=== PATIENT | female | born 1990 | race Caucasian/White ===

== ENCOUNTER 2020-12-25 23:54 | Emergency (ER) | payer MEDICAID, SELFPAY ==
--- NOTE | ~2020-12-25 | XR_ITS ---
EXAMINATION: XR ANKLE, LEFT CLINICAL INFORMATION: Status post fall COMPARISON: None TECHNIQUE: AP, lateral, and mortise views of the left ankle. FINDINGS: No acute fracture or dislocation. Ankle mortise is congruent. Talar dome intact. Soft tissue swelling present lateral to the ankle. No ankle joint effusion. XR/XR ankle LT min 3V IMPRESSION: No acute fracture or dislocation. Soft tissue swelling lateral to the ankle.
[2020-12-25 23:57] VITALS: BP 127/79; PULSE 84; RESP 16; TEMP 36.9; O2SAT 100; BMI 28.0
[2020-12-26 00:04] VITALS: BP 122/81; PULSE 80; RESP 16; TEMP 37; O2SAT 100
--- NOTE | 2020-12-26 00:11 | ED.LOWEXIN ---
HPI - Extremity Injury (Lower) General Chief Complaint: Extremity Injury, Lower Stated Complaint: left ankle pain Time Seen by Provider: 12/26/20 00:09 Source: patient Mode of arrival: ambulatory Limitations: no limitations History of Present Illness HPI Narrative: Patient was [place] [employer] [place] this afternoon landed wrong betzy left foot landed with food turned inward since then complaining of pain and swelling. No other injuries MD complaint: ankle injury Related Data Previous Rx's Medication Instructions Recorded ibuprofen 600 mg PO Q6H PRN #20 tab 12/26/20 Allergies Allergy/AdvReac Type Severity Reaction Status Date / Time No Known Allergies Allergy Verified 12/26/20 00:13 Review of Systems Review of Systems: Yes all other systems are reviewed and are negative [facility] Social History Social History Alcohol intake: current Alcohol intake frequency: holidays/special occasions only Smoking Status: Never smoker Use of substances other than those prescribed or required for medical reasons: Yes Substance Use Type: Marijuana Substance Use Frequency: Occasionally Advance Directives: No Advance Directives Information Provided: No Physical Exam Vital Signs: Vital Signs: Last Vital Signs Temp 98.6 F 12/26/20 00:04 Pulse 80 12/26/20 00:04 Resp 16 12/26/20 00:04 BP 122/81 12/26/20 00:04 Pulse Ox 100 12/26/20 00:04 Body Mass Index 28.0 Const: General: no acute distress Orientation/consciousness: patient oriented x3 Back/Spine/Pelvis: Thoracic/Lumbar Spine: thoracic and lumbar spine normal to inspection Neuro: General: patient oriented x3 Extrem: Ankle/foot/toe images: 1. Diffuse swelling of lateral malleolus no obvious deformity neurovascular intact Procedures Orthopedic Splinting/Casting Injury #1: Side: left Lower Extremity Injury Location: ankle Lower Extremity Immobilizer: AirCast Other Orthopedic Equipment: crutches MDM - Extremity Injury (Lower) MDM Narrative Medical decision making narrative: X negative fracture will apply air cast and give crutches Differential Diagnosis Differential diagnosis: Likely ankle sprain and strain Discharge Plan Discharge Clinical Impression: Ankle sprain and strain Patient Disposition: Home, Self-Care Instructions: Ankle Sprain (ED) Additional Instructions: Rest to left ankle wear ankle Aircast. Crutches for support Ibuprofen for pain Prescriptions: New ibuprofen 600 mg tablet 600 mg PO Q6H PRN (Reason: pain) Qty: 20 RF: 0
--- NOTE | 2020-12-26 00:17 | PC.NURSE ---
pt presents to ED with left ankle injury after going to [employer] this afternoon and landing on her left foot wrong. pt states she heard a pop when she landed and landed with her left foot rotated inward. pt states she was somewhat weight bearing right after the incident but is no longer weight bearing. current pain is 8/10 on left ankle. pt is alert and oriented x3, eye contact and verbal response appropriate for setting. pt speaks in full sentences and is able to make needs known. respirations are even and unlabored. pt denies feeling short of breath at this time. heart rate within normal limits. swelling present on left lateral malleolus, pt has limited range of motion in left foot/ankle--minimal flexion and extension, unable to rotate left foot at all. pedal pulses present bilaterally but diminished in left foot. no discoloration noted on left foot or ankle. fresh ice pack given to patient for left ankle. x ray ordered. md at bedside. pt aware of plan of care, no questions or concerns at this time. call chacko in reach.
[2020-12-26] MEDS: traMADoL HCL 50 MG TABLET PO (00:38)
== END 2020-12-26 01:08 | disposition home or self-care (01) ==
PROVIDERS: Emergency Provider Internal Medicine
DX: S93.402A Sprain of unspecified ligament of left ankle, initial encounter (principal); S96.912A Strain of unspecified muscle and tendon at ankle and foot level, left foot, initial encounter; X50.1XXA Overexertion from prolonged static or awkward postures, initial encounter; Y93.44 Activity, trampolining; Y92.39 Other specified sports and athletic area as the place of occurrence of the external cause; Y99.9 Unspecified external cause status
CPT/HCPCS: 73610; 99283; 99284

== ENCOUNTER 2024-08-20 21:15 | Emergency (ER) | payer OTHER, SELFPAY ==
--- NOTE | ~2024-08-20 | XR_ITS ---
EXAMINATION: XR CHEST CLINICAL INFORMATION: Chest pain COMPARISON: None TECHNIQUE: 2 views of the chest were obtained. FINDINGS: No significant abnormality is noted involving the heart, lungs, mediastinum, bony thorax or soft tissues. XR/XR chest 2V IMPRESSION: Unremarkable examination. Electronically signed by: Jacob Warren MD 08/21/2024 12:50 AM [facility]
--- NOTE | 2024-08-20 21:18 | ECG_ITS ---
Test Reason : CHEST PAIN Blood Pressure : / mmHG Vent. Rate : 075 BPM Atrial Rate : 075 BPM P-R Int : 130 ms QRS Dur : 092 ms QT Int : 392 ms P-R-T Axes : 016 088 042 degrees QTc Int : 437 ms Normal sinus rhythm Normal ECG No previous ECGs available Referred By: Generic ED Physician Electronically Signed By:Gareth Sloan
[2024-08-20 21:20] VITALS: BP 125/84; PULSE 81; RESP 16; TEMP 37.3; O2SAT 100; BMI 26.6
[2024-08-20 21:44] LABS: MANUAL DIFF FLAG NO
[2024-08-20 21:47] LABS: Basophils Percent Auto 0.5 % (0-2); Eosinophils Absolute Auto 0.3 X10*3/uL (0.0-0.4); Hematocrit 38.3 % (37.0-47.0); Hemoglobin 13.4 g/dl (12.0-16.0); Imm Gran Abs Auto 0.02 X10*3/uL (0.00-0.03); Imm Gran Pct Auto 0.2 % (0.0-0.4); Lymphocytes Absolute Auto 2.8 X10*3/uL (1.2-4.9); Lymphocytes Percent Auto 31.7 % (20-40); Mean Corpuscular Hemoglobin 30.4 pg (27.0-33.0); Mean Corpuscular Volume 86.8 fL (80.0-98.0); Mean Platelet Volume 9.7 fL (9.4-12.3); Monocytes Absolute Auto 0.7 X10*3/uL (0.1-1.2); Monocytes Percent Auto 7.6 % (2-11); Platelet Count 315 X10*3/uL (160-400); Red Blood Count 4.41 X10*6/uL (4.20-5.50); Red Cell Distribution Width 11.7 % (11.0-16.0); White Blood Count 8.7 X10*3/uL (4.8-10.8)
[2024-08-20 22:06] LABS: Alanine Aminotransferase 19 U/L (0-31); Alkaline Phosphatase 60 U/L (39-117); Anion Gap 12 (12-20); Aspartate Amino Transferase 21 U/L (5-31); Bilirubin Total 0.2 mg/dL (0.0-1.0); Blood Urea Nitrogen 10 mg/dL (9-16); Carbon Dioxide 24 mmol/L (22-29); Chloride 107 mmol/L (96-108); Creatinine Clr Calc Pharmacy 90.1; Estimated Glomerular Filt Rate > 60; Glucose Random 108 mg/dL (60-115); Potassium 3.8 mmol/L (3.3-5.1); Sodium 139 mmol/L (135-145); Total Protein 6.9 g/dL (6.5-8.0)
[2024-08-20 22:13] LABS: Troponin-I High Sensitivity < 2.7 ng/L (<3.5-17.0)
[2024-08-21 00:16] VITALS: BP 115/60; PULSE 69; RESP 16; TEMP 37; O2SAT 96
--- NOTE | 2024-08-21 00:36 | ED.CHESTPAIN ---
HPI - Chest Pain General Chief Complaint: Chest Pain Stated Complaint: Chest pain Time Seen by Provider: 08/21/24 00:11 Related Data Previous Rx's ?Medication ?Instructions ?Recorded ibuprofen 600 mg tablet 600 mg PO Q6H PRN pain #20 tabs 12/26/20 Allergies Allergy/AdvReac Type Severity Reaction Status Date / Time sulfamethoxazole Allergy Hives Verified 08/20/24 21:23 [From Bactrim] trimethoprim [From Bactrim] Allergy Hives Verified 08/20/24 21:23 [facility] Social History Social History Alcohol intake: current Alcohol intake frequency: holidays/special occasions only Substance Use Type: Marijuana Advance Directives: No Do you have a plan to hurt others: No Plan Physical Exam Vital Signs: Vital Signs: Last Vital Signs Temp 98.6 F 08/21/24 00:16 Pulse 69 08/21/24 00:16 Resp 16 08/21/24 00:16 BP 115/60 08/21/24 00:16 Pulse Ox 96 08/21/24 00:16 O2 Del Method Room Air 08/21/24 00:16 BMI result Body Mass Index 26.6 Medical Decision Making Lab Data 08/20/24 21:39 08/20/24 21:39 Labs: Lab Results 08/20/24 Range/Units 21:39 WBC 8.7 (4.8-10.8) X10*3/uL RBC 4.41 (4.20-5.50) X10*6/uL Hgb 13.4 (12.0-16.0) g/dl Hct 38.3 (37.0-47.0) % MCV 86.8 (80.0-98.0) fL MCH 30.4 (27.0-33.0) pg MCHC 35.0 (31.0-35.0) g/dl RDW 11.7 (11.0-16.0) % Plt Count 315 (160-400) X10*3/uL MPV 9.7 (9.4-12.3) fL Immature Gran % (Auto) 0.2 (0.0-0.4) % Neut % (Auto) 57.0 (45-73) % Lymph % (Auto) 31.7 (20-40) % [place] % (Auto) 7.6 (2-11) % Eos % (Auto) 3.0 (0-4) % Baso % (Auto) 0.5 (0-2) % Lymph # (Auto) 2.8 (1.2-4.9) X10*3/uL [place] # (Auto) 0.7 (0.1-1.2) X10*3/uL Eos # (Auto) 0.3 (0.0-0.4) X10*3/uL Baso # (Auto) 0.0 (0.0-0.2) X10*3/uL Abs Immat Gran (auto) 0.02 (0.00-0.03) X10*3/uL Absolute Neuts (auto) 5.0 (2.0-8.3) x10*3/uL Absolute Nucleated RBC 0.000 (0.0-0.012) X10*3/uL Nucleated RBC % (auto) 0.0 (0.0-0.2) /100WBC Sodium 139 (135-145) mmol/L Potassium 3.8 (3.3-5.1) mmol/L Chloride 107 (96-108) mmol/L Carbon Dioxide 24 (22-29) mmol/L Anion Gap 12 (12-20) BUN 10 (9-16) mg/dL Creatinine 0.83 (0.5-1.4) mg/dL Estim Creat Clear Calc 90.1 Estimated GFR > 60 Random Glucose 108 (60-115) mg/dL Calcium 9.0 (8.4-10.2) mg/dL Total Bilirubin 0.2 (0.0-1.0) mg/dL AST 21 (5-31) U/L ALT 19 (0-31) U/L Alkaline Phosphatase 60 (39-117) U/L Troponin I High Sens < 2.7 (<3.5-17.0) ng/L Total Protein 6.9 (6.5-8.0) g/dL Albumin 4.0 (3.5-5.0) g/dL Discharge Plan Discharge Clinical Impression: Chest pain Patient Disposition: Home, Self-Care Instructions: Chest Pain (ED) Additional Instructions: Your workup in the ER today was reassuring. This includes your blood work, EKG, chest x-ray. You may use ibuprofen/Tylenol as needed for pain. You may follow-up with cardiology at the number provided Return for new or worsening symptoms Prescriptions: No Action ibuprofen 600 mg tablet 600 mg PO Q6H PRN (Reason: pain) Qty: 20 0RF Referrals: Gareth Sloan MD [Physician] - (chest pain) Print Language: Malawian
[2024-08-21 00:47] VITALS: BP 122/69; PULSE 70; RESP 16; TEMP 36.8; O2SAT 99
== END 2024-08-21 00:48 | disposition home or self-care (01) ==
PROVIDERS: Emergency Provider Internal Medicine; PCP Nurse Practitioner Family
DX: R07.89 Other chest pain (principal); Z79.899 Other long term (current) drug therapy
CPT/HCPCS: 36415; 71046; 80053; 84484; 85025; 93005; 99283; 99285

== ENCOUNTER → 2024-08-20 21:18 | Outpatient (BNV) | payer MEDICAID, SELFPAY | PROVIDERS: Emergency Provider Internal Medicine; PCP Nurse Practitioner Family; Visit Provider Internal Medicine Cardiovascular Disease | DX: R07.9 Chest pain, unspecified (principal) | CPT/HCPCS: 93010 ==

== ENCOUNTER 2024-09-20 13:33 | Outpatient (AMB) | payer OTHER, SELFPAY ==
--- NOTE | 2024-09-20 13:35 | A.OFFVIS_ITS ---
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 She has been referred to us by her primary care physician for evaluation of ongoing chest pain. The patient was recently seen in the emergency room for this issue, where her EKG and troponin levels were within normal limits, and was discharged with NSAIDs. Since then, her chest pain has become more frequent. She describes it as a constant 5/10 left-sided chest tightness and pressure sometimes associated with sharp pain in the same location pain is vague in nature, worsens over time, and can be exertional as well as nonexertional. The patient also reports infrequent palpitations during these episodes and notes that at times she wakes up at night gasping for air, accompanied by chest pain. Additionally she mentions that about 5 months ago, she lost her spouse suddenly. Initially believing her symptoms were emotionally related, but as her symptoms progressively worsened she believes this could be broken heart syndrome . She further notes that her spouse had undiagnosed cardiac issues on autopsy which were not discovered during the ER visits for his chest pain, and this has made her particularly attentive to her own cardiac health. [facility] Medical History Palpitation Atypical chest pain Social History Alcohol intake: current Alcohol intake frequency: does not drink Patient Tobacco Use Status: Never used Tobacco Review of Systems Const Denies weakness ENT Reports dizziness Card Reports chest pain, Denies chest pain with activity, Denies syncope, Denies rapid heart rate, Denies pedal edema, Denies edema, Denies leg edema, Denies lightheadedness, Reports palpitations, Reports dyspnea, Denies dyspnea on exertion and Denies orthopnea Resp Denies cough, Reports dyspnea and Denies dyspnea on exertion GI Denies hematochezia and Denies change in stool character Musc Denies abnormal gait, Denies muscle cramps, Denies muscle weakness, Denies numbness, Denies radiating pain into limb and Denies tingling Neuro Denies abnormal gait, Reports dizziness, Denies syncope, Denies numbness, Denies tingling and Denies weakness Endo Reports palpitations Physical Exam Vital Signs: Last Vital Signs Pulse 65 09/20/24 13:36 BP 106/60 09/20/24 13:36 BMI result Body Mass Index 26.9 Const General: cooperative, healthy appearing, comfortable and no acute distress Orientation/consciousness: patient oriented x3 HEENT Head: Yes normal to inspection Neck Neck: Yes normal visual inspection, Yes trachea midline and Yes supple Chest Chest palpation & inspection: normal inspection of the chest Resp Effort & Inspection: normal respiratory effort Auscultation: clear to auscultation bilaterally, no crackles, no rales, no rhonchi and no wheezes Cardio Jugular venous distension: no JVD Palpation: normal PMI Rate: regular rate Rhythm: regular rhythm Heart sounds: S1 normal heart sound present, S2 normal heart sound present, no click, no gallops, no murmurs and no rubs Peripheral pulses: Peripheral pulses 2+ throughout GI Inspection: Yes normal to inspection Palpation (GI): Soft to palpation Auscultation: normal bowel sounds Skin General skin exam: no rashes or lesions noted Neuro General: patient oriented x3 Extrem General: Yes normal to inspection, No no pedal edema and No calf tenderness Psych Appearance: grossly normal Mental Status: mental status grossly normal Speech and movement: Normal speech and movement present Office Procedures EKG Details: EKG today shows underlying normal sinus rhythm at 65 beats per minute, [place], [place]. [id number], Complete Assessment & Plan Assessment & Plan (1) Atypical chest pain: Code(s): R07.89 - Other chest pain Category: Medical (2) Palpitation: Code(s): R00.2 - Palpitations Category: Medical Plan Patient's description of chest pain is atypical, and it may be musculoskeletal or anxiety related. However, to rule out any underlying ischemic heart disease, we will proceed with an exercise stress test. Additionally, given the patient's reports of fluttering and skipped heartbeats, we will get a Holter monitor to assess for potential arrhythmias. Patient has expressed a strong desire for echocardiogram to ensure comprehensive evaluation, and we will accommodate this request. The echocardiogram is ordered to assess for any structural abnormalities or wall motion issues. Patient will follow-up after completion of tests. In the interim, advised patient to continue NSAIDs as needed for the pain management. Recommended seeking ER care or calling the office for increased chest pain with exertion, shortness of breath, presyncope or syncope. This note was generated using voice recognition software. While every effort has been made to ensure accuracy and proper bar steward, there may be occasional errors that could affect the content or meaning of the described symptoms. Orders: Orders ECG 3 day holter monitor Today R00.2 - Palpitations CA stress test Today R07.89 - Other chest pain CA echo transthoracic complete Today R00.2 - Palpitations, R07.89 - Other chest pain AMB EKG-In Office Today R07.89 - Other chest pain Medications: Discontinued ibuprofen Discontinued Reason: Patient no longer taking 600 mg PO Q6H PRN 20 tabs 0RF pain Coding Level of Care Code New Pt Level 4 (96894) Diagnoses Atypical chest pain R07.89 Palpitation R00.2 CPT Codes EKG - CPT: 87053-[id number], Complete ([id number]) Time Spent (min) 31 Comment Time spent in reviewing the chart, test results, assessment, counseling and documentation.
[2024-09-20 13:36] VITALS: BP 106/60; PULSE 65; BMI 26.9
== END 2024-09-20 14:26 | disposition home or self-care (01) ==
PROVIDERS: PCP Nurse Practitioner Family
DX: R07.89 Other chest pain (principal); R00.2 Palpitations
CPT/HCPCS: 93010; 99204

== ENCOUNTER → 2024-09-20 13:33 | Outpatient (BNVA) | payer OTHER, SELFPAY | PROVIDERS: PCP Nurse Practitioner Family | DX: R07.89 Other chest pain (principal); R00.2 Palpitations | CPT/HCPCS: 93005 ==

== ENCOUNTER → 2024-10-07 08:05 | Outpatient (REF) | payer OTHER, SELFPAY ==
--- NOTE | 2024-10-07 08:10 | CA_ITS ---
Transthoracic Echocardiogram Patient (Last, First, Middle): Destinee Hampton, Gender: Female Date of : 1990 Age: 34 Procedure Date: 10/07/2024 Procedure Type: Transthoracic Echocardiogram Location: OP Height: 160.02 cm Weight: 68.04 kg BSA: 1.71 m2 Heart Rate: 82 bpm BP: 105 / 65 mmHg Director Private Music Therapy Agency: [employer] Alvarez MD: Nasim Aguayo NP [place] Specialists: Saleem Sequeira MD Symptoms: R00.2 - Palpitations Study Quality: Adequate ECG Rhythm: Sinus Conclusions: - Essentially normal study Findings Left Ventricle Normal left ventricular size, thickness, and systolic function. The visually estimated ejection fraction is between 60-65%. Diastolic function is normal for age. Peak GLS is -20.3%, within normal limits. Right Ventricle Normal right ventricular cavity size and systolic function. Atria Both atria are normal in size. There is lipomatous hypertrophy of the interatrial septum. There is no evidence of interatrial shunt. Aortic Valve Normal aortic valve structure and function. There is no aortic valve stenosis. There is no aortic valve regurgitation. Mitral Valve Normal mitral valve structure and function. There is trace mitral valve regurgitation. There is no mitral valve stenosis. Pulmonic Valve The pulmonic valve is likely normal. There is trace pulmonic valve regurgitation. Tricuspid Valve Normal tricuspid valve structure. Tricuspid regurgitation envelope is inadequate for calculation of right ventricular systolic pressure. Normal right atrial pressure. Great Vessels All visible segments of the aorta are normal in size. The pulmonary artery was not well visualized. Venous The inferior vena cava is normal in size and collapses greater than 50% with inspiration. Pericardium/Pleural There is no evidence of pericardial effusion. Prior Study Comparison No prior study available for comparison. Measurements 2D Linear Measurements IVSd: 0.75 0.6-0.9/0.6-1.0 cm LVIDd: 4.29 3.9-5.3/4.2-5.9 cm LVIDd Index: 2.51 2.4-3.2/2.2-3.1 cm/m2 LVIDs: 2.76 2.0-3.6 cm LVPWd: 0.85 0.7-1.1 cm LA Diam: 3.10 2.7-3.8/3.0-4.0 cm LAIDs Index: 1.81 1.5-2.3 cm/m2 LV Mass: 130.07 67-162/88-224 g LV Mass Index: 76.07 43-95/49-115 g/m2 LVOT Diam: 1.90 3.0+(-)1.3 cm 2D Systolic Function EF 4C: 58.10 >55% EF 2C: 64.80 >55% EF BiP: 60.20 >55% Mitral Valve MV Pk E: 0.96 MV PK A: 0.68 MV Decel Time: 152.00 E/A: 1.40 E'Lateral: 14.30 E'Medial: 11.00 E/E' Med: 8.80 E/E' Lat: 6.70 PHT: 45.00 MVA PHT: 4.89 Decel [place]: 6.32 Aortic Valve AoV Pk Minor: 1.12 AoV Mn Minor: 0.85 AoV VTI: 0.24 AoV Pk Grad: 5.00 Aov Mn Grad: 3.00 TONY Cont.VTI: 2.44 LVOT LVOT Pk Minor: 1.02 LVOT Mn Minor: 0.75 LVOT VTI: 0.21 LVOT Pk Grad: 4.00 LVOT Mn Grad: 3.00 LVOT Diam: 1.90 LVOT Area: 2.84 Diastolic Function MV Pk E: 0.96 MV Pk A: 0.68 E/A: 1.40 E'Medial: 11.00 E/E' Med: 8.80 E' Laterial: 14.30 E/E' Lat: 6.70 Right Ventricle TAPSE (mm): 23.60 TVS' Minor: 12.30 Tricuspid Valve RA Press: 3.00 Great Vessels Aorta Sinus of Valsalva: 2.90 2.0-3.5 cm Ao Asc: 2.70 2.1-3.4 cm Pulmonary Valve PV Pk Minor: 0.88 Peak PV Grad: 3.00 Updated in Other Vendor System with Status of Final Saleem Sequeira MD electronically signed on 10/08/2024 4:57:03 PM with status of Final
--- NOTE | 2024-10-07 08:10 | CA_ITS ---
Acquisition Time: 2024-10-07 09:02:19 Total Exercise Time: 00:07:37 Test Indications: CHEST PAIN Medications: Protocol: ED Max HR: 166 BPM 88% of Pred: 188 BPM Max BP: 138/80 mmHG Max Work Load: 9.4 METS Exercise Stress Test with exercise 7 mins 37 secs of Ed Protocol, achieving 89% MPHR, without any anginal symptoms, with an isolated PVC, with normotensive response to exercise. Without EKG changes meeting criteria for ischemia. Test reviewed with Dr. Sequeira. Referred By: Nasim Aguayo Electronically Signed By: Nasim Aguayo
== END ==
LOC: HO.CARD 08:05
PROVIDERS: PCP Nurse Practitioner Family
DX: R00.2 Palpitations (principal); R07.89 Other chest pain
CPT/HCPCS: 93017; 93242; 93306; 93356

== ENCOUNTER → 2024-10-07 08:10 | Outpatient (BNV) | payer OTHER, SELFPAY | PROVIDERS: PCP Nurse Practitioner Family | DX: R07.9 Chest pain, unspecified (principal) | CPT/HCPCS: 93350; 93356 ==